=== PATIENT | female | born 1950 | race Caucasian/White ===

== ENCOUNTER 2017-01-23 15:25 | Emergency (ER) | payer MEDICAID ==
[~2017-01-23] VITALS: Ht 142.2 cm; Wt 49.5 kg
[~2017-01-23 15:25] MED LIST: ACTONEL150 MG OR; ALBUTERO1 IN; ALBUTEROL0.5 % IN; ANTIVERT12.5 MG PO; ATROVENT INH0.5 MG IN; BACTRIM DS1 TAB PO; BACTROBAN2 % EX; CALCIUM600 MG PO; CIPRO500 MG OR; DOXYCYC MONO100 M2 PO; FLEXERIL10 MG PO; FLUOCIN ACET0.01 % EX; GENOPTIC0.3 % OP; LASIX 20 MG TAB20 MG PO; LEVOTHYROXIN88 MC1 PO; LIORESAL10 MG/TA1 PO; LISINOPRIL10 MG PO; LOPRESSOR12.5 MG PO; MUCINEX1200 MG PO; MULTIVITAM10 OR; MULTIVITAMIN PO; NAPROSYN500 MG PO; NORVASC PO; NORVASC5 M1 PO; PAROXETINE20 MG PO; PAXIL20 MG OR; PAXIL30 MG PO; PHENERGAN12.5 MG/TA PO; POT CHLORIDE20 ME3 PO; PREVACID30 M1 OR; PRILOSEC40 MG PO; PROMETHAZINE12.5 M4 PO; PROVENTIL HFA IN; RECLAST5 MG/100 M IV; REQUIP XL2 MG PO; SYNTHROID75 MCG OR; TRIAMCINOLON0.11 EX; TYLENOL 500MG TAB PO; ULTRAM50 MG OR; WELLBUTRIN SR150 MG PO; ZANAFLEX4 MG PO; ZPAK PO; [UNRECOGNIZED DRUG - OTHER] EX
[2017-01-23 16:55] VITALS: BP 106/66
== END 2017-01-23 16:55 | disposition home or self-care (01) | DRG 923 ==
LOC: ED 15:25
DX: Z04.3 Encounter for examination and observation following other accident (principal); I10 Essential (primary) hypertension; E05.90 Thyrotoxicosis, unspecified without thyrotoxic crisis or storm; G80.9 Cerebral palsy, unspecified; V00.811A Fall from moving wheelchair (powered), initial encounter